=== PATIENT | male | born 1980 | race Caucasian/White ===

== ENCOUNTER 2020-10-11 11:24 | Emergency (ER) | payer OTHER ==
[~2020-10-11] VITALS: Ht 170.2 cm; Wt 68.0 kg
[2020-10-11 11:44] VITALS: BP 114/79; Ht 170.2 cm; Wt 68.0 kg
== END 2020-10-11 12:06 | disposition home or self-care (01) ==
LOC: ED 11:24
DX: S61.231A Puncture wound without foreign body of left index finger without damage to nail, initial encounter (principal); W27.3XXA Contact with needle (sewing), initial encounter; Y93.89 Activity, other specified; Y92.89 Other specified places as the place of occurrence of the external cause; Y99.8 Other external cause status